=== PATIENT | female | born 1995 | race American Indian/Alaskan Native ===

== ENCOUNTER 2019-06-18 13:26 | Emergency (ER) | payer MEDICAID ==
--- NOTE | 2019-06-18 14:24 | Emergency Department Report ---
HPI - General Chief Complaint: Abdominal Pain Time Seen by Provider: 06/18/19 14:09 - HPI HPI: 23-year-old -[place] female presents to the emergency department by EMS with complaint of pelvic pain and heavy vaginal bleeding. The patient says that she usually has irregular menstrual cycles and the fact that she does not always have it every month. However, when the patient does have a menstrual cycle it usually lasts 3-4 days at a maximum. Currently she is on day 9 of her menstrual cycle. She was at work when the vaginal bleeding increased and she developed pelvic pain. She tried to get a car ride home from work but on the way home she began having even more bleeding and they pulled over and EMS was called. She otherwise denies any other past medical history. She follows with [facility]. ED Past Medical Hx - Past Medical History Previous Medical History?: No - Surgical History Past Surgical History?: Yes Additional Surgical History: - Social History Smoking Status: Never Smoker Substance Use Type: None - Medications Home Medications: Home Medications Medication Instructions Recorded Confirmed Last Taken Type HYDROcodone/APAP 5-325 [[facility] 1 each PO Q6HR PRN #12 tablet 06/18/19 Unknown Rx 5/325] ED Review of Systems ROS: Stated complaint: VAGINAL BLEED Other details as noted in HPI Comment: All other systems reviewed and negative Constitutional: denies: chills, fever Eyes: denies: eye pain, vision change ENT: denies: ear pain, throat pain Respiratory: denies: cough, shortness of breath Cardiovascular: denies: chest pain, palpitations Gastrointestinal: denies: nausea, vomiting Genitourinary: abnormal menses, other (pelvic pain) Musculoskeletal: denies: back pain, arthralgia Skin: denies: rash, lesions Neurological: denies: headache, weakness Physical Exam - Physical Exam Vital Signs: Vital Signs 06/18/19 06/18/19 13:51 14:04 Temperature 98.8 F 97.6 F Pulse Rate 84 73 Respiratory 18 17 Rate Blood Pressure 91/58 [Right] O2 Sat by Pulse 96 100 Oximetry Physical Exam: GENERAL: The patient is well-developed well-nourished. HENT: Normocephalic. Atraumatic. Patient has moist mucous membranes. EYES: Extraocular motions are intact. NECK: Supple. Trachea is midline. CHEST/LUNGS: Clear to auscultation. There is no respiratory distress noted. HEART/CARDIOVASCULAR: Regular. There is no tachycardia. There is no murmur. ABDOMEN: Abdomen is soft, nontender. Patient has normal bowel sounds. There is no abdominal distention. SKIN: Skin is warm and dry. NEURO: The patient is awake, alert, and oriented. The patient is cooperative. The patient has no focal neurologic deficits. Normal speech. MUSCULOSKELETAL: There is no tenderness or deformity. There is no evidence of acute injury. : There is moderate vaginal bleeding with clots seen. ED Course Vital Signs 06/18/19 06/18/19 13:51 14:04 Temperature 98.8 F 97.6 F Pulse Rate 84 73 Respiratory 18 17 Rate Blood Pressure 91/58 [Right] O2 Sat by Pulse 96 100 Oximetry - Reevaluation(s) Reevaluation #1: 06/18/19 19:20 External vaginal examination done with nurse at bedside a voip engineer. - Consultations Consultation #1: 06/18/19 19:20 I spoke with the EMPLOYEE OPERATIONS EXAMINER on-call, Dr. Allen Rdoriguez, who said to the case presentation included ultrasound findings worrisome for retained products of conception. The patient has a stable hemoglobin and hematocrit and he says the patient can follow up with him in the office in 48 hours. ED Medical Decision Making - Lab Data Result diagrams: 06/18/19 14:29 06/18/19 14:29 - Radiology Data Radiology results: report reviewed OB Ultrasound HISTORY: , vaginal bleeding. TECHNIQUE: Grayscale and color Doppler imaging performed. COMPARISON: OB ultrasound from 04/02/2019 FINDINGS: Transabdominal and endovaginal imaging was performed. Uterus measures 11.4 x 6.1 x 5.8 cm with complex thickened endometrium with internal vascularity. There is residual complex internal debris with some nodularity and an irregular residual gestational sac. No pole or cardiac activity is iden tified. Bilateral ovarian follicles are present. No pelvic free fluid identified. IMPRESSION: Abnormal grossly thickened and nodular endometrium in this patient with previous failed . Given the nodularity with areas of prominent internal vascularity, findings are worrisome for retained products of conception. - Medical Decision Making Patient presents with the complaint of increased vaginal bleeding after having some vaginal bleeding for the past 9 days that she believes is her menstrual cycle. However the patient has a beta hCG of 25 and an ultrasound that shows findings concerning for retained products of conception. The patient later tells me that she had a miscarriage or possibly now an incomplete miscarriage in the past 1-2 months and was being followed by EMPLOYEE OPERATIONS EXAMINER for serial beta hCG checks that never went down to 0. Patient has a stable hemoglobin of about 12.5. Vital signs stable throughout her ED course. I spoke with the EMPLOYEE OPERATIONS EXAMINER on-call illicit to the case presentation and says the patient can follow-up in 48 hours. The patient was given all of the labs, imaging results and discussion with the EMPLOYEE OPERATIONS EXAMINER. She understands to return to the emergency Department with any worsening of her symptoms or any acute distress. - Differential Diagnosis menorrhagia, , fibroids, retained products of conception Critical Care Time: No Critical care attestation.: If time is entered above; I have spent that time in minutes in the direct care of this critically ill patient, excluding procedure time. ED Disposition Clinical Impression: Retained products of conception, Vaginal bleeding Disposition: TO HOME OR SELFCARE Is pt being admited?: No Condition: Stable Instructions: Abdominal Pain (ED) Additional Instructions: You were seen today for heavy vaginal bleeding and pelvic pain. The ultrasound and elevated hormone, together, are concerning for retained products of conception. Please follow-up with Dr. Allen Rodriguez, EMPLOYEE OPERATIONS EXAMINER, on Sunday. Return to the emergency department with any increased bleeding, development of shortness of breath, dizziness, chest pain, or with any acute distress. You have been prescribed a medication that is sedating and therefore should not be taken prior to driving, working, and responsible for children and in no way should be mixed with alcohol of any quantity. Prescriptions: HYDROcodone/APAP 5-325 [[facility] 5/325] 1 each PO Q6HR PRN #12 tablet PRN Reason: Pain Referrals: ALLEN RODRIGUEZ MD [Staff Physician] - 06/20/19 Forms: Work/School Release Form(ED) Time of Disposition: 17:59
[2019-06-18 14:56] LABS: Basophils # (Auto) 0.1 K/mm3 (0.0-0.1); Basophils % (Auto) 0.6 % (0.0-1.8); Eosinophils # (Auto) 0.6 K/mm3 (0.0-0.4); Eosinophils % (Auto) 7.1 % (0.0-4.3); Hemoglobin 12.8 gm/dl (10.1-14.3); Lymphocytes # (Auto) 2.3 K/mm3 (1.2-5.4); Lymphocytes % (Auto) 27.6 % (13.4-35.0); Mean Corpuscular HGB Conc 35 % (30-34); Mean Corpuscular Volume 90 fl (79-97); Monocytes # (Auto) 0.5 K/mm3 (0.0-0.8); Monocytes % (Auto) 6.1 % (0.0-7.3); Platelet Count 199 K/mm3 (140-440); Red Cell Distribution Width 13.7 % (13.2-15.2)
[2019-06-18 15:07] LABS: INR 1.1 (0.87-1.13)
[2019-06-18 15:16] LABS: BUN/Creatinine Ratio 16; Blood Urea Nitrogen 11 mg/dL (7-17); Calcium 8.7 mg/dL (8.4-10.2); Hemolysis Index 1
[2019-06-18] MEDS ORDERED: K-DUR PO ONE (15:20)
[2019-06-18 15:29] LABS: Bilirubin,Urine NEG (Negative); Blood,Urine LG (Negative); Color,Urine Yellow (Yellow); Mucus,Urine FEW /HPF; Protein,Urine <15 mg/dL mg/dL (Negative); Urobilinogen,Urine < 2.0 mg/dL (<2.0)
[2019-06-18 15:32] LABS: RBC,Urine > 182.0 /HPF (0.0-6.0)
[2019-06-18] MEDS ORDERED: TYLENOL PO ONE (15:33)
[2019-06-18] MEDS ORDERED: NACL 0.9% 1000 ML 1,000 ML ONE (15:38)
[2019-06-18] MEDS ORDERED: NACL 0.9% 1000 ML 1,000 ML IV ONE (15:39)
[2019-06-18 17:01] VITALS: BP 104/66
--- NOTE | 2019-06-18 17:21 | Ultrasound Report ---
OB Ultrasound HISTORY: , vaginal bleeding. TECHNIQUE: Grayscale and color Doppler imaging performed. COMPARISON: OB ultrasound from 04/02/2019 FINDINGS: Transabdominal and endovaginal imaging was performed. Uterus measures 11.4 x 6.1 x 5.8 cm with complex thickened endometrium with internal vascularity. The re is residual complex internal debris with some nodularity and an irregular residual gestational sac . No pole or cardiac activity is identified. Bilateral ovarian follicles are present. No pelvic free fluid identified. IMPRESSION: Abnormal grossly thickened and nodular endometrium in this patient with previous failed p regnancy. Given the nodularity with areas of prominent internal vascularity, findings are worrisome f or retained products of conception. Signer Name: Percy Figueredo MD Signed: 06/18/2019 5:17 PM Workstation Name: [id number]
== END 2019-06-18 18:19 | disposition home or self-care (01) ==
LOC: ED 13:26
DX: N93.9 Abnormal uterine and vaginal bleeding, unspecified (principal); Z79.899 Other long term (current) drug therapy
CPT/HCPCS: 36415; 76801; 76817; 80048; 81001; 84702; 84703; 85025; 85610; 86850; 86900; 86901; 99285; J7030